=== PATIENT | male | born 1940 | race Caucasian/White ===

== ENCOUNTER 2021-02-09 02:06 | Outpatient (CLI) | payer MEDICARE, OTHER, SELFPAY ==
[2021-02-09 10:21] LABS: Source Nasal/Nares
[2021-02-09 13:45] LABS: COVID-19 PCR Positive (Negative)
== END 2021-02-09 02:07 | disposition home or self-care (01) ==
PROVIDERS: Visit Provider Ophthalmology
DX: Z20.822 Contact with and (suspected) exposure to COVID-19 (principal); Z01.818 Encounter for other preprocedural examination
CPT/HCPCS: 87635

== ENCOUNTER 2021-02-23 03:38 | Outpatient (CLI) | payer MEDICARE, OTHER, SELFPAY | END 2021-02-23 03:39 | disposition home or self-care (01) | LOC: LBO 03:39 | PROVIDERS: Visit Provider Ophthalmology ==

== ENCOUNTER 2021-06-04 07:00 | Day surgery (SDC) | payer MEDICARE, OTHER, SELFPAY ==
--- NOTE | 2021-06-04 06:26 | W.ANESPRE ---
General Info Date of Service Date Performed: 06/04/21 Height: 5 ft 4 in Weight: 107 kg Body Mass Index (BMI): 40.4 Surgical Procedure: Operation Date: 06/04/21 09:10 Proposed Procedure Side Surgeon p Cataract Extraction with IOL Implant Right Terry Frank MD Meds Allergies and Home Medications Allergies Allergy/AdvReac Type Severity Reaction Status Date / Time No Known Allergies Allergy Unverified 06/04/21 07:47 Home Medication Medication Instructions Recorded acetaminophen 500 mg tablet 1,000 mg PO Q6H PRN 02/07/21 aspirin 81 mg capsule,delayed 81 mg PO DAILY 02/07/21 release cyanocobalamin (vitamin B-12) 1,000 mcg PO DAILY 02/07/21 1,000 mcg tablet (Vitamin B-12) folic acid 1 mg tablet 1 mg PO DAILY 02/07/21 lactulose 20 gram/30 mL oral 45 ml PO 5X/DAY 02/07/21 solution lovastatin 20 mg tablet 20 mg PO DAILY 02/07/21 pantoprazole 40 mg tablet,delayed 40 mg PO DAILY 02/07/21 release potassium chloride 20 mEq 20 meq PO DAILY 02/07/21 tablet,extended release rifaximin 550 mg tablet (Xifaxan) 550 mg PO BID 02/07/21 torsemide 20 mg tablet 20 mg PO DAILY 02/07/21 Current Visit Medications: Current Medications Generic Name Dose Route Start Last Admin Trade Name Freq PRN Reason Stop Dose Admin Acetaminophen 1,000 mg 06/04/21 06:00 Acetaminophen 500 Mg Tab PO Q4H PRN PRN Miscellaneous Medication 0 ml 06/04/21 06:00 Prednisolone 1%, Moxifloxacin 0.5%, Nepafenac 0.1% 5ml Btl OD DIRECTED [facility] Miscellaneous Medication 0 ml 06/04/21 06:00 Tropicam./Phenyleph. 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 Diabetes mellitus Esophageal varices Heart block AV complete History of abdominal paracentesis History of COVID-19 History of transcatheter aortic valve replacement (TAVR) HLD (hyperlipidemia) Hypertensive disorder Joint pain of ankle and foot Left bundle branch block (LBBB) Obesity Pacemaker [facility] [place] [place] Dual Chamber Surgical History Surgical History Hx of cardiac catheterization 02/08/20 Hx of colonoscopy Hx of esophagogastroduodenoscopy Hx of tonsillectomy Tobacco Smoking/Tobacco Use Status: Former Tobacco Use Alcohol Alcohol Intake: former Substance Use Substance use: Never Substance use type: does not use Vital Signs and Lab Results Lab Results Blood Type / Crossmatch: No Data to Display Complete Blood Count: No Data to Display Complete Metabolic Panel: No Data to Display Liver Function Panel: No Data to Display Coagulation Panel: No Data to Display Cardiac Panel: No Data to Display Arterial Blood Gas: No Data to Display Venous Blood Gas: No Data to Display Pancreas Panel: No Data to Display Thyroid Panel: No Data to Display Infectious Disease: No Data to Display Blood Cultures: No Data to Display Toxicology Panel: No Data to Display Imaging and Studies Imaging and Studies Study information below may be from another EMR and interpreted by another provider. Please see original notes in EMR for more complete details. Echocardiogram Summary: 05/26/2020: LVEF 60%. PAS 29 mmhg. bioprosthetic AoV. 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 Reason for Placement:: [facility] Date of Last Device Interrogation:: 06/01 Airway Exam Known Difficult Airway: No Mallampati Class: 2 Mouth Opening: Normal (> 3cm) Thyromental Distance: Greater than 3 cm Neck Range of Motion: Limited ROM Neck Circumference: Thick Teeth Condition: Removable Dentures/Plates Upper, Removable Dentures/Plates Lower and Edentulous ASA Classification ASA Score: ASA 4 Emergency Case?: No NPO Status NPO Status: NPO Clears >2 hours, Solids >8 hours Anesthesia Plan Resuscitation Status: Full Code Anesthesia Technique: MAC Anesthesia Airway Planned: Natural Airway Monitors Used: Standard Monitors Preoperative Comments:: 80 yo male for cataract extraction. Sig PMHx: s/p TAVR, cirrhosis, DM, COVD, HTN, LBBB, pacer, former smoker. states he can lay flat. no MKO.
[2021-06-04] MEDS: Tropicam./Phenyleph. (1/2.5%) 5 ML BTL OD ×3 (07:40→07:58)
[2021-06-04 07:41] VITALS: BP 127/86; PULSE 100; RESP 18; TEMP 37; O2SAT 98
[2021-06-04 07:57] VITALS: BMI 40.4
[2021-06-04] MEDS: Duovisc Viscoelastic System EACH 1 EACH (09:00)
[2021-06-04] MEDS: Balanced Salt Soln.-PLUS 500 ML BAG (09:00)
[2021-06-04] MEDS: Povidone-Iodine Ophth 30 ML BTL (09:00)
[2021-06-04] MEDS: Lidocaine 2% Jelly 6 ML SYR (09:00)
[2021-06-04] MEDS: Tetracaine 0.5% 4 ML BTL OD (09:14)
[2021-06-04 09:15] VITALS: BP 112/56; PULSE 93; RESP 16; TEMP 36.7; O2SAT 99
--- NOTE | 2021-06-04 09:17 | W.PM.DSUDISC ---
Discharge Plan Disposition Patient Disposition: HOME Condition: Good Discharge Details Attending Provider: Terry Frank Primary Care Provider: Charis Vega Home Meds and New Rx's Prescriptions: No Action torsemide 20 mg Tablet 20 mg PO DAILY 0RF cyanocobalamin (vitamin B-12) [Vitamin B-12] 1,000 mcg Tablet 1,000 mcg PO DAILY 0RF acetaminophen 500 mg Tablet 1,000 mg PO Q6H PRN0RF aspirin 81 mg Capsule,Delayed Release(Dr/Ec) 81 mg PO DAILY 0RF pantoprazole 40 mg Tablet,Delayed Release (Dr/Ec) 40 mg PO DAILY 0RF folic acid 1 mg Tablet 1 mg PO DAILY 0RF lovastatin 20 mg Tablet 20 mg PO DAILY 0RF Xifaxan 550 mg Tablet 550 mg PO BID 0RF lactulose 20 gram/30 mL Solution 45 ml PO 5X/DAY 0RF potassium chloride 20 mEq Tablet Extended Release 20 meq PO DAILY 0RF Discharge Instructions Stand Alone Forms: Post-op Topical Cataract, Verito Henderson (DSU) Discharge Orders Discharge Orders: Discharge Order (Routine); Ordered 06/04/21 Ordered By: Terry Frank DS: Diagnosis Discharge Diagnosis (1) Cortical cataract of right eye: Status: Resolved (2) Nuclear sclerotic cataract of right eye: Status: Resolved
--- NOTE | 2021-06-04 09:18 | ROE_ITS ---
Date of service: 06/04/21 Time of Service: 09:18 Operative Note Operative Note DATE OF PROCEDURE: 06/04/21 PRE-OP DIAGNOSIS: Nuclear/cortical cataract, right eye POST-OP DIAGNOSIS: same PROCEDURE: Cataract extraction using phacoemulsification with intraocular lens implant, right eye SURGEON: Terry Frank ANESTHESIA TYPE: Local By Surgeon and MAC Refer to Anesthesia Record ESTIMATED BLOOD LOSS: 0 PATHOLOGY: none sent COMPLICATIONS: None Patient was transported to: same day Patient's condition: stable Implants: Domingo [employer] Domingo/JONAS Tecnis [id number] Indications: Progressive visual loss due to cataract, right eye Procedure Description: CATARACT SURGERY OPERATIVE REPORT PREOPERATIVE DIAGNOSIS: 1. Nuclear/cortical cataract, right eye POSTOPERATIVE DIAGNOSIS: Same OPERATION: 1. Cataract extraction using phacoemulsification with posterior chamber intraocular lens implant, right eye. IOL: IOL Photographer Apprentice/Model: Domingo [employer] Domingo / JONAS Tecnis [id number] IOL Power: + 22.0 diopters IOL Serial Number: [id number] Optic Diameter: 6.0mm Haptic/Overall Diameter: 13.0mm PHACO INFO: Chilo SeamBLiSSurion Vision System with OZil and Active Fluidics Cumulative Dispersed Energy (CDE): 15.77 seconds SURGEON: Terry Frank MD, RAFFI ANESTHESIA: Monitored Anesthesia Care (MAC), with local sub-tenon's anesthetic infiltration COMPLICATIONS: None SPECIMENS: None INDICATIONS FOR PROCEDURE: The patient is an 80-year-old male with history of diminished visual acuity in his right eye secondary to the development of nuclear and cortical cataract. The option of cataract surgery was offered to the patient and he felt he was symptomatic enough that he wished to proceed. PROCEDURE: The correct surgical eye was identified and marked as the right eye and the pupil was dilated in the preoperative area using mydriatics and cyclo plegics. The dilated pupil size was 5.0 mm. He elected to proceed without oral sedation. The patient was brought to the operating room where cardiopulmonary monitoring was instituted and surgical time-out was performed, confirming the correct operative eye and IOL power. Topical anesthesia was administered and ophthalmic povidone-iodine 5% was instilled into the conjunctival fornices. Lidocaine gel was applied to the cornea and the clover-ocular area was prepped with Betadine 10% solution and draped in the usual sterile fashion for intraocular surgery, including an aperture drape. A Tegaderm transparent film dressing was cut in half and used to cover the lashes and lid margins. Care was taken to sequester the lashes and lid margins under the Tegaderm dressing. A lid speculum was placed between the lids of the operative eye and the Chilo LuxOR Revalia operating microscope was maneuvered into position. Dick scissors were then used to make a conjunctival buttonhole approximately 6mm posterior to the limbus in the inferonasal quadrant. Blunt dissection was carried out to expose bare sclera, and a blunt-tipped sub-tenon?s anesthesia cannula was introduced and passed posteriorly along the globe where non- preserved plain lidocaine was injected into posterior sub-Tenon?s space. A sideport knife was used to make a paracentesis port inferotemporally. Intraocular phenylephrine/lidocaine was injected into the anterior chamber. The anterior chamber was filled with viscoelastic. A 2.4mm keratome knife was used to create a half-thickness groove at the limbus and then to construct a three- plane near-clear corneal tunnel extending 2.0mm into clear cornea superiortemporally. A flap was raised on the anterior capsule and capsulorhexis forceps were used to complete a continuous curvilinear capsulorhexis of 5.0 mm. Balanced salt solution was then used to perform cortical cleaving hydrodissection and nuclear hydrodelineation until the lens could be freely rotated within the capsular bag. The lens nucleus was then disassembled and removed within the capsular bag and iris plane using phacoemulsification. Residual cortical material was removed using the I/A handpiece. The posterior capsule was carefully polished to remove as much residual lens epithelial cells as safely possible. The capsular bag was then inflated and the anterior chamber deepened with viscoelastic. The lens implant described above was inserted into the capsular bag using the JONAS [place] Injector. A Kuglen hook was used to dial the IOL into position. Residual viscoelastic was then removed first from posterior to the IOL, then from the anterior chamber using the I/A handpiece. The lens implant was noted to center nicely within the capsular bag. The incisions were stromally hydrated, and the anterior chamber was reformed using BSS. Then 0.5cc of moxifloxacin 1.0mg/ml were injected into the capsular bag and anterior chamber. The incisions were checked with a Weck spear and found to be secure. Several drops of ophthalmic povidone-iodine 5% were then applied to the eye followed by two drops of Imprimis combination prednisolone/moxifloxacin/nepafenac solution. The drapes were removed and a clear plastic protective eye shield was placed over the eye. The patient was then returned to Same Day Surgery in stable condition.
--- NOTE | 2021-06-04 09:35 | W.ANESPOSTOP ---
Postoperative Evaluation Date, Time and Location Date Performed: 06/04/21 Time Performed: 09:20 Patient Location: Day Surgery Unit Vital Signs Most Recent Imported Vital Signs: Most Recent Vital Signs Temp Pulse Resp BP Pulse Ox 36.7 C 93 H 16 112/56 L 99 06/04/21 09:15 06/04/21 09:15 06/04/21 09:15 06/04/21 09:15 06/04/21 09:15 Pain Score Most Recent Pain Score: Most Recent Pain Score Pain Level 0 06/04/21 09:15 Assessment Mental Status: Awake (Alert & Oriented to Patient Baseline) Airway and Respiratory Function: Patent airway with normal (patient baseline) respiratory exam Cardiovascular Function: Hemodynamically Stable Hydration Status: Adequately Hydrated Nausea & Vomiting: No Nausea or Vomiting Pain: Pt. Denies Any Pain Peripheral Nerve Block: Patient did not receive a nerve block
== END 2021-06-04 09:40 | disposition home or self-care (01) ==
PROVIDERS: PCP Nurse Practitioner Family; Visit Provider Ophthalmology
PROC: (CPT 66984; principal; 2021-06-04 09:00)
DX: H25.11 Age-related nuclear cataract, right eye (principal); I48.91 Unspecified atrial fibrillation; E11.9 Type 2 diabetes mellitus without complications
CPT/HCPCS: 66984; V2632

== ENCOUNTER 2021-06-18 08:47 | Day surgery (SDC) | payer MEDICARE, OTHER, SELFPAY ==
[2021-06-18] MEDS: Tropicam./Phenyleph. (1/2.5%) 5 ML BTL OS ×3 (09:41→10:01)
[2021-06-18 09:42] VITALS: BP 117/62; PULSE 79; RESP 18; TEMP 36.7; O2SAT 99
--- NOTE | 2021-06-18 10:04 | W.ANESPRE ---
General Info Date of Service Date Performed: 06/18/21 Height: 5 ft 7 in Weight: 102.5 kg Body Mass Index (BMI): 35.4 Surgical Procedure: Operation Date: 06/18/21 11:25 Proposed Procedure Side Surgeon p Cataract Extraction with IOL Implant Left Terry Frank MD Meds Allergies and Home Medications Allergies Allergy/AdvReac Type Severity Reaction Status Date / Time No Known Allergies Allergy Unverified 06/18/21 09:38 Home Medication Medication Instructions Recorded acetaminophen 500 mg tablet 1,000 mg PO Q6H PRN 02/07/21 aspirin 81 mg capsule,delayed 81 mg PO DAILY 02/07/21 release cyanocobalamin (vitamin B-12) 1,000 mcg PO DAILY 02/07/21 1,000 mcg tablet (Vitamin B-12) folic acid 1 mg tablet 1 mg PO DAILY 02/07/21 lactulose 20 gram/30 mL oral 45 ml PO 5X/DAY 02/07/21 solution lovastatin 20 mg tablet 20 mg PO DAILY 02/07/21 pantoprazole 40 mg tablet,delayed 40 mg PO DAILY 02/07/21 release potassium chloride 20 mEq 20 meq PO DAILY 02/07/21 tablet,extended release rifaximin 550 mg tablet (Xifaxan) 550 mg PO BID 02/07/21 torsemide 20 mg tablet 20 mg PO DAILY 02/07/21 sucralfate 1 gram tablet 06/18/21 Current Visit Medications: Current Medications Generic Name Dose Route Start Last Admin Trade Name Freq PRN Reason Stop Dose Admin Acetaminophen 1,000 mg 06/18/21 06:00 Acetaminophen 500 Mg Tab PO Q4H PRN PRN Miscellaneous Medication 0 ml 06/18/21 06:00 Prednisolone 1%, Moxifloxacin 0.5%, Nepafenac 0.1% 5ml Btl OS DIRECTED [facility] Miscellaneous Medication 0 ml 06/18/21 06:00 06/18/21 10:01 Tropicam./Phenyleph. 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 Reports albumin was high and told to not miss any lactulose (takes 5x day). Surgical History Surgical History Hx of cardiac catheterization 02/08/20 Hx of colonoscopy Hx of esophagogastroduodenoscopy Hx of tonsillectomy Tobacco Smoking/Tobacco Use Status: Former Tobacco Use Alcohol Alcohol Intake: former Substance Use Substance use: Never Substance use type: does not use Vital Signs and Lab Results Vital Signs Most Recent Vital Signs in EMR: Most Recent Vital Signs Temp Pulse Resp BP Pulse Ox 36.7 C 79 18 117/62 99 06/18/21 09:42 06/18/21 09:42 06/18/21 09:42 06/18/21 09:42 06/18/21 09:42 Lab Results Blood Type / Crossmatch: No Data to Display Complete Blood Count: No Data to Display Complete Metabolic Panel: No Data to Display Liver Function Panel: No Data to Display Coagulation Panel: No Data to Display Cardiac Panel: No Data to Display Arterial Blood Gas: No Data to Display Venous Blood Gas: No Data to Display Pancreas Panel: No Data to Display Thyroid Panel: No Data to Display Infectious Disease: No Data to Display Blood Cultures: No Data to Display Toxicology Panel: No Data to Display Imaging and Studies Imaging and Studies Study information below may be from another EMR and interpreted by another provider. Please see original notes in EMR for more complete details. Echocardiogram Summary: 05/26/2020: LVEF 60%. PAS 29 mmhg. bioprosthetic AoV. 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:: [employer] L311 Reason for Placement:: Bradycardia Date of Last Device Interrogation:: Unknown per patient Airway Exam Known Difficult Airway: No Mallampati Class: 2 Mouth Opening: Normal (> 3cm) Thyromental Distance: Greater than 3 cm Neck Range of Motion: Limited ROM Neck Circumference: Thick Teeth Condition: Removable Dentures/Plates Upper, Removable Dentures/Plates Lower and Edentulous ASA Classification ASA Score: ASA 4 Emergency Case?: No NPO Status NPO Status: NPO Clears >2 hours, Solids >8 hours Anesthesia Plan Resuscitation Status: Full Code Anesthesia Technique: MAC Anesthesia Airway Planned: Natural Airway Monitors Used: Standard Monitors
[2021-06-18 10:25] VITALS: BMI 35.4
[2021-06-18] MEDS: Povidone-Iodine Ophth 30 ML BTL (10:29)
[2021-06-18] MEDS: Tetracaine 0.5% 4 ML BTL OS (10:29)
[2021-06-18] MEDS: Lidocaine 2% Jelly 6 ML SYR (10:29)
[2021-06-18] MEDS: Balanced Salt Soln.-PLUS 500 ML BAG (10:34)
[2021-06-18] MEDS: Duovisc Viscoelastic System EACH 1 EACH (10:34)
[2021-06-18 10:59] VITALS: BP 108/65; PULSE 91; RESP 16; TEMP 36.5; O2SAT 99
--- NOTE | 2021-06-18 10:59 | W.PM.DSUDISC ---
Discharge Plan Disposition Patient Disposition: HOME Condition: Good Discharge Details Attending Provider: Terry Frank Primary Care Provider: Charis Vega Home Meds and New Rx's Prescriptions: No Action sucralfate 1 gram tablet 0RF Label Comments: TAKE 1 TABLET (1 GRAM) BY MOUTH 4 TIMES DAILY FOR 90 DAYS torsemide 20 mg Tablet 20 mg PO DAILY 0RF cyanocobalamin (vitamin B-12) [Vitamin B-12] 1,000 mcg Tablet 1,000 mcg PO DAILY 0RF acetaminophen 500 mg Tablet 1,000 mg PO Q6H PRN0RF aspirin 81 mg Capsule,Delayed Release(Dr/Ec) 81 mg PO DAILY 0RF pantoprazole 40 mg Tablet,Delayed Release (Dr/Ec) 40 mg PO DAILY 0RF folic acid 1 mg Tablet 1 mg PO DAILY 0RF lovastatin 20 mg Tablet 20 mg PO DAILY 0RF Xifaxan 550 mg Tablet 550 mg PO BID 0RF lactulose 20 gram/30 mL Solution 45 ml PO 5X/DAY 0RF potassium chloride 20 mEq Tablet Extended Release 20 meq PO DAILY 0RF Discharge Instructions Stand Alone Forms: Post-op Topical Cataract, Verito Henderson (DSU) Discharge Orders Discharge Orders: Discharge Order (Routine); Ordered 06/18/21 Ordered By: Terry Frank DS: Diagnosis Discharge Diagnosis (1) Nuclear sclerotic cataract of left eye: Status: Resolved (2) Cortical cataract of left eye: Status: Resolved
--- NOTE | 2021-06-18 11:00 | W.PM.OP ---
Date of service: 06/18/21 Time of Service: 11:00 Operative Note Operative Note DATE OF PROCEDURE: 06/18/21 PRE-OP DIAGNOSIS: Nuclear/cortical cataract, left eye POST-OP DIAGNOSIS: same PROCEDURE: Cataract extraction using phacoemulsification with intraocular lens implant, left eye SURGEON: Terry Frank ANESTHESIA TYPE: Local By Surgeon and MAC Refer to Anesthesia Record PATHOLOGY: none sent COMPLICATIONS: None Patient was transported to: same day Patient's condition: stable Implants: Domingo and Domingo / [employer] Tecnis [id number] Indications: Progressive decreased vision due to cataract, left eye Procedure Description: CATARACT SURGERY OPERATIVE REPORT PREOPERATIVE DIAGNOSIS: 1. Nuclear/cortical cataract, left eye POSTOPERATIVE DIAGNOSIS: Same OPERATION: 1. Cataract extraction using phacoemulsification with posterior chamber intraocular lens implant, left eye. IOL: IOL Negotiator/Model: Domingo [employer] Domingo / JONAS Tecnis [id number] IOL Power: + 21.5 diopters IOL Serial Number: [id number] Optic Diameter: 6.0 mm Haptic/Overall Diameter: 13.0 mm PHACO INFO: ChiloRivalryon Vision System with OZil and Active Fluidics Cumulative Dispersed Energy (CDE): 11.49 seconds SURGEON: Terry Frank MD, RAFFI ANESTHESIA: Monitored A [facility] (MAC), with local sub-tenon's anesthetic infiltration COMPLICATIONS: None SPECIMENS: None INDICATIONS FOR PROCEDURE: The patient is an 80-year-old gentleman with history of diminished visual acuity in both eyes secondary to development of bilateral nuclear/cortical cataract. He is significantly symptomatic that he desires cataract surgery and attempt to improve and maximize his vision. He has already undergone cataract surgery in the right eye and is doing well postoperatively. He now presents for cataract surgery in the left eye. PROCEDURE: The correct surgical eye was identified and marked as the left eye and the pupil was dilated in the preoperative area using mydriatics and cycloplegics. The dilated pupil size was 5.0mm. He elected to proceed without oral sedation. patient was brought to the operating room where cardiopulmonary monitoring was instituted and surgical time-out was performed, confirming the correct operative eye and IOL power. Topical anesthesia was administered and ophthalmic povidone-iodine 5% was instilled into the conjunctival fornices. Lidocaine gel was applied to the cornea and the clover-ocular area was prepped with Betadine 10% solution and draped in the usual sterile fashion for intraocular surgery, including an aperture drape. A Tegaderm transparent film dressing was cut in half and used to cover the lashes and lid margins. Care was taken to sequester the lashes and lid margins under the Tegaderm dressing. A lid speculum was placed between the lids of the operative eye and the Chilo LuxOR Revalia operating microscope was maneuvered into position. Dick scissors were then used to make a conjunctival buttonhole approximately 6mm posterior to the limbus in the inferonasal quadrant. Blunt dissection was carried out to expose bare sclera, and a blunt-tipped sub-tenon?s anesthesia cannula was introduced and passed posteriorly along the globe where non-preserved plain lidocaine was injected into posterior sub-Tenon?s space. A sideport knife was used to make a paracentesis port superiorly/superiortemporally. Intraocular phenylephrine/lidocaine was injected int the anterior chamber.. The anterior chamber was filled with viscoelastic. A 2.4mm keratome knife was used to construct a 2-plane near-clear corneal tunnel extending 2.0mm into clear cornea temporally. A flap was raised on the anterior capsule and capsulorhexis forceps were used to complete a continuous curvilinear capsulorhexis of 5.0 mm. Balanced salt solution was then used to perform cortical cleaving hydrodissection and nuclear hydrodelineation until the lens could be freely rotated within the capsular bag. The lens nucleus was then disassembled and removed within the capsular bag and iris plane using phacoemulsification. Residual cortical material was removed using the 45-degree angled silicone I/A tip with 0.3mm port. The posterior capsule was carefully polished to remove as much residual lens epithelial cells as safely possible. The capsular bag was then inflated and the anterior chamber deepened with viscoelastic. The lens implant described above was inserted into the capsular bag using the JONAS [place] Injector. A Kuglen hook was used to dial the IOL into position. Residual viscoelastic was then removed first from posterior to the IOL, then from the anterior chamber using the I/A handpiece. The lens implant was noted to center nicely within the capsular bag. The incisions were stromally hydrated, and the anterior chamber was reformed using BSS. Then 0.5cc of moxifloxacin 1.0mg/ml were injected into the capsular bag and anterior chamber. The incisions were checked with a Weck spear and found to be secure. Several drops of ophthalmic povidone-iodine 5% were then applied to the eye followed by two drops of Imprimis combination prednisolone/moxifloxacin/nepafenac solution. The drapes were removed and a clear plastic protective eye shield was placed over the eye. The patient was then returned to Same Day Surgery in stable condition.
--- NOTE | 2021-06-18 11:32 | W.ANESPOSTOP ---
Postoperative Evaluation Date, Time and Location Date Performed: 06/18/21 Time Performed: 11:10 Patient Location: Day Surgery Unit Vital Signs Most Recent Imported Vital Signs: Most Recent Vital Signs Temp Pulse Resp BP Pulse Ox 36.5 C 91 H 16 108/65 99 06/18/21 10:59 06/18/21 10:59 06/18/21 10:59 06/18/21 10:59 06/18/21 10:59 Pain Score Most Recent Pain Score: Most Recent Pain Score Pain Level 0 06/18/21 10:59 Assessment Mental Status: Awake (Alert & Oriented to Patient Baseline) Airway and Respiratory Function: Patent airway with normal (patient baseline) respiratory exam Cardiovascular Function: Hemodynamically Stable Hydration Status: Adequately Hydrated Nausea & Vomiting: No Nausea or Vomiting Pain: Pt. Denies Any Pain Peripheral Nerve Block: Patient did not receive a nerve block
== END 2021-06-18 11:17 | disposition home or self-care (01) ==
PROVIDERS: PCP Nurse Practitioner Family; Visit Provider Ophthalmology
PROC: (CPT 66984; principal; 2021-06-18 11:15)
DX: H25.12 Age-related nuclear cataract, left eye (principal); I48.91 Unspecified atrial fibrillation; I10 Essential (primary) hypertension; E11.9 Type 2 diabetes mellitus without complications
CPT/HCPCS: 66984; V2632